=== PATIENT | male | born 1975 | race Caucasian/White ===

== ENCOUNTER → 2019-10-26 09:49 | Outpatient (BNVA) | payer OTHER, SELFPAY | PROVIDERS: Family Provider Family Medicine; PCP Family Medicine; Visit Provider Nurse Practitioner | DX: M25.519 Pain in unspecified shoulder (principal); S43.101A Unspecified dislocation of right acromioclavicular joint, initial encounter; X58.XXXA Exposure to other specified factors, initial encounter | CPT/HCPCS: 73030 ==

== ENCOUNTER 2019-11-25 15:35 | Outpatient (CLI) | payer OTHER, SELFPAY ==
--- NOTE | 2019-11-25 16:00 | MR_ITS ---
WS: [id number] MRI RIGHT SHOULDER HISTORY: S46.911A Strain of unspecified muscle, fascia and tendon ... COMPARISON: 10/26/2019 radiographs. TECHNIQUE: Multiplanar sequences of the shoulder joint are submitted. Moderate AC joint hypertrophy with increased signal along the acromioclavicular ligament and small hy pertrophic osteophytes. There is mild encroachment upon the anterior supraspinatus by hypertrophic ch anges of the clavicle. Distal end of the acromion along the undersurface contains a 5 mm osteophyte w ith encroachment upon the distal supraspinatus tendon. There is a small amount of increased T2 signal and edema within the supraspinatus muscle at the level of the AC joint. Very small amount of subacro mial and subdeltoid bursal fluid. No os acromion. Marked tendinopathy with thickening involving a large portion of the distal supraspinatus tendon. The re is linear increased signal extending near completely through the tendon. The bursal surface of the tendon is probably still in contact but minimal. No retraction of the tendon. There is additional in creased signal and poor visualization of the distal subscapularis tendon. There is encroachment upon the subscapularis tendon by narrowing of the coracohumeral space. Infraspinatus tendon and the teres minor are intact. There is very mild atrophy of the supraspinatus muscle with no edema. Biceps tendon is in normal position with some increased fluid in the tendon sheath. Abnormal relation ship of the humeral head with the glenoid. Mild posterior subluxation of the humeral head. There is n arrowing of the glenohumeral joint. Loss of cartilage along the glenoid with intrasubstance degenerat ion in the labrum. The anterior labrum is blunted and poorly visualized. MR/MR shoulder RT wo con* [id number] IMPRESSION: 1. Severe tendinopathy distal supraspinatus and subscapularis tendons. 2. Near complete articular surface full-thickness tear through the distal supr aspinatus tendon. There are a few bursal side fibers which are still intact. 3. Moderate glenohumeral joint arthritis with loss of cartilage of the glenoid and intrasubstance degeneration of the labrum. 4. Moderate osteoarthritic changes at the AC joint with encroachment upon the supraspinatus muscle. 5. Distal undersurface 5 mm acromial osteophyte with encroachment upon the dis robert supraspinatus tendon over the humeral head. 6. Coracohumeral space interval is 5 mm.
== END 2019-11-25 15:36 | disposition home or self-care (01) ==
LOC: RADSHAW 15:38
PROVIDERS: Visit Provider Specialist
DX: S46.911A Strain of unspecified muscle, fascia and tendon at shoulder and upper arm level, right arm, initial encounter (principal); M75.31 Calcific tendinitis of right shoulder; M75.101 Unspecified rotator cuff tear or rupture of right shoulder, not specified as traumatic; M25.711 Osteophyte, right shoulder; X58.XXXA Exposure to other specified factors, initial encounter
CPT/HCPCS: 73221

== ENCOUNTER 2019-11-30 06:00 | Outpatient (RCR) | payer OTHER, SELFPAY | END 2019-12-21 23:59 | disposition home or self-care (01) | LOC: APT 06:00 | PROVIDERS: Visit Provider Specialist | DX: S46.911D Strain of unspecified muscle, fascia and tendon at shoulder and upper arm level, right arm, subsequent encounter (principal); X58.XXXD Exposure to other specified factors, subsequent encounter | CPT/HCPCS: 97110; 97140; 97161 ==

== ENCOUNTER → 2020-08-21 16:22 | Outpatient (BNVA) | payer OTHER, SELFPAY | PROVIDERS: Visit Provider Nurse Practitioner Family | DX: M79.672 Pain in left foot (principal) | CPT/HCPCS: 73630 ==

== ENCOUNTER → 2022-09-18 14:54 | Outpatient (BNVA) | payer OTHER, SELFPAY | PROVIDERS: Visit Provider Specialist | DX: M17.11 Unilateral primary osteoarthritis, right knee (principal) | CPT/HCPCS: 73560; 73565 ==

== ENCOUNTER 2022-09-18 15:58 | Outpatient (CLI) | payer OTHER, SELFPAY | END 2022-09-18 15:59 | disposition home or self-care (01) | LOC: SPT 15:59 | PROVIDERS: Visit Provider Specialist | DX: Z46.89 Encounter for fitting and adjustment of other specified devices (principal); M17.11 Unilateral primary osteoarthritis, right knee | CPT/HCPCS: 97760; L1851 ==

== ENCOUNTER 2023-01-29 06:00 | Outpatient (RCR) | payer OTHER, SELFPAY | END 2023-02-20 23:59 | disposition home or self-care (01) | LOC: APT 06:00 | PROVIDERS: Visit Provider Orthopaedic Surgery Foot and Ankle Surgery | DX: M17.11 Unilateral primary osteoarthritis, right knee (principal) | CPT/HCPCS: 97110; 97112; 97161; 97530 ==

== ENCOUNTER 2023-02-21 06:00 | Outpatient (RCR) | payer OTHER, SELFPAY | END 2023-03-13 23:59 | disposition home or self-care (01) | LOC: APT 06:00 | PROVIDERS: Visit Provider Orthopaedic Surgery Foot and Ankle Surgery | DX: M17.11 Unilateral primary osteoarthritis, right knee (principal) | CPT/HCPCS: 97110; 97112; 97140; 97530 ==

== ENCOUNTER 2025-05-20 06:52 | Outpatient (CLI) | payer OTHER, SELFPAY ==
--- NOTE | 2025-05-20 07:13 | USR_ITS ---
PROCEDURE INFORMATION: Exam: US Abdomen; Limited Exam date and time: 05/20/2025 7:18 AM Age: 49 years old Clinical indication: Abnormal findings; Abnormal lab test; Elevated liver enzymes TECHNIQUE: Imaging protocol: Real time ultrasound of the abdomen with image documentation. Limited exam focused on the region of clinical interest. COMPARISON: No relevant prior studies available. FINDINGS: Liver: The liver is 15 cm in length. The main portal vein is patent. No hepatic mass. No biliary obstruction. Aorta: The aorta, gallbladder, right kidney, all appear normal. US/US abdomen limited [id number] IMPRESSION: The findings are normal.
== END 2025-05-20 06:53 | disposition home or self-care (01) ==
LOC: RAD 06:54
PROVIDERS: PCP Nurse Practitioner Family; Visit Provider Nurse Practitioner Family
DX: R74.8 Abnormal levels of other serum enzymes (principal)
CPT/HCPCS: 76705